=== PATIENT | female | born 1980 ===

== ENCOUNTER 2025-06-13 09:00 | Day surgery (SDC) | payer OTHER ==
[2025-06-11 14:39] VITALS: BP 112/75
[~2025-06-13] VITALS: Ht 154.9 cm; Wt 59.0 kg
[2025-06-13] MEDS ORDERED: DIPHENHYDRAMINE HCL 50 MG/ML VIAL 1ML ONE (09:31)
== END 2025-06-13 13:50 | disposition home or self-care (01) ==
LOC: CIR.AMB 09:00
PROVIDERS: ATTEND Internal Medicine
DX: D13.1 Benign neoplasm of stomach (principal); K31.89 Other diseases of stomach and duodenum; Z91.013 Allergy to seafood; Z88.6 Allergy status to analgesic agent; Z88.8 Allergy status to other drugs, medicaments and biological substances